=== PATIENT | female | born 2000 | race Caucasian/White ===

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

== ENCOUNTER 2019-06-03 23:08 | Emergency (ER) | payer OTHER ==
[~2019-06-03] VITALS: Ht 152.4 cm; Wt 66.7 kg
[2019-06-03 23:26] VITALS: BP_SYST 119
[2019-06-04] MEDS ORDERED: ONDANSETRON HCL 4 MG/2 ML VIAL IVP ONE
[2019-06-04] MEDS ORDERED: NACL 0.9% 1,000 ML IV ONE
[2019-06-04] MEDS ORDERED: KETOROLAC TROMETHAMINE 30 MG VIAL IVP ONE
[2019-06-04 02:34] VITALS: BP_SYST 123
== END 2019-06-04 02:34 | disposition home or self-care (01) ==
LOC: SED 23:08
DX: T62.8X1A Toxic effect of other specified noxious substances eaten as food, accidental (unintentional), initial encounter (principal); F31.9 Bipolar disorder, unspecified; Y92.89 Other specified places as the place of occurrence of the external cause
CPT/HCPCS: 96361; 96374; 96375; 99283; J1885; J2405; J7030